=== PATIENT | female | born 1970 | race Caucasian/White ===

== ENCOUNTER 2020-08-25 08:07 | Emergency (ER) | payer OTHER ==
[~2020-08-25] VITALS: Ht 162.6 cm; Wt 56.7 kg
[2020-08-25 08:07] VITALS: BP 156/111
--- NOTE | 2020-08-25 08:07 | NUR ---
Patient BIBA BLS, transferred to bed 7. RN evaluating the patient at bedside.
--- NOTE | 2020-08-25 08:08 | NUR ---
Dr. Orozco is evaluating the patient at bedside.
[2020-08-25] MEDS ORDERED: ACETAMINOPHEN EXTRA STRENGTH 500 MG TAB PO ONE (08:20)
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
--- NOTE | 2020-08-25 08:41 | NUR ---
forensic science technician at bedside.
--- NOTE | 2020-08-25 09:04 | NUR ---
PT GIVEN BREAKFAST TRAY
[2020-08-25] MEDS ORDERED: ACET-10509 PO (09:30)
[2020-08-25 09:41] VITALS: BP 156/111
--- NOTE | 2020-08-25 09:41 | NUR ---
Patient discharged with v/s stable. Written and verbal after care instructions given and explained. Patient alert, oriented and verbalized understanding of instructions. Ambulatory with steady gait. All questions addressed prior to discharge. ID band removed. Patient advised to follow up with PMD. Rx of Tylenol extra strength given. Patient educated on indication of medication including possible reaction and side effects. Opportunity to ask questions provided and answered.
== END 2020-08-25 09:35 | disposition home or self-care (01) ==
LOC: MED 08:07
DX: R07.89 Other chest pain (principal); M79.10 Myalgia, unspecified site
CPT/HCPCS: 71045; 99283